=== PATIENT | female | born 1965 | race Asian ===

== ENCOUNTER 2017-06-24 11:27 | Outpatient (CLI) | payer OTHER ==
[2017-06-24 13:03] LABS: BILIRUBIN,URINE NEGATIVE (NEGATIVE); CLARITY/URINE CLEAR (CLEAR); COLOR,URINE YELLOW (YELLOW); GLUCOSE,URINE NEGATIVE (NEGATIVE); KETONES,URINE NEGATIVE (NEGATIVE); LEUKOCYTE ESTERASE ,URINE NEGATIVE (NEGATIVE); NITRITE, URINE NEGATIVE (NEGATIVE); PH,URINE 5.5 (5.0-8.0); PROTEIN URINE NEGATIVE (NEGATIVE); UROBILINOGEN,URINE 0.2 (0.2-1.0)
[2017-06-24 13:07] LABS: BLOOD, URINE TRACE (NEGATIVE)
[2017-06-24 13:12] LABS: BASOPHILS # (AUTO) 0.1 K/uL (0.0-0.2); BASOPHILS % (AUTO) 1.3 % (0.0-2.0); EOSINOPHILS # (AUTO) 0.2 K/uL (0.0-0.4); EOSINOPHILS % (AUTO) 2.9 % (0.0-4.0); HEMATOCRIT 45.1 % (36-48); LYMPHOCYTES # (AUTO) 2.7 K/uL (1.0-5.5); LYMPHOCYTES % (AUTO) 38.5 % (20.5-51.5); MEAN CORPUSCULAR HEMOGLOBIN 30 pg (27-31); MEAN CORPUSCULAR HGB CONC 33 % (32-36); MEAN CORPUSCULAR VOLUME 91 fL (79.0-98.0); MONOCYTES # (AUTO) 0.5 K/uL (0.0-1.0); MONOCYTES % (AUTO) 6.7 % (1.7-9.3); NEUTROPHILS # (AUTO) 3.6 K/uL (1.8-7.7); NEUTROPHILS % (AUTO) 50.6 % (40.0-70.0); PLATELET COUNT (AUTO) 271 K/uL (130-430); RED BLOOD CELL COUNT(AUTO) 4.94 MIL/uL (4.2-6.2); RED CELL DISTRIBUTION WIDTH 11.4 % (9.0-15.0); WHITE BLOOD COUNT (AUTO) 7.1 K/uL (4.8-10.8)
[2017-06-24 13:14] LABS: BACTERIA,URINE RARE /HPF (None Seen); WBC,URINE 0-3 /HPF (0-3)
[2017-06-24 13:20] LABS: ALBUMIN 4.3 g/dL (3.4-4.8); BILIRUBIN,DIRECT 0.1 mg/dL (0.0-0.3); CALCIUM 8.7 mg/dL (8.4-11.0); CREATININE 0.97 mg/dL (0.55-1.30); FREE T4 (FREE THYROXINE) 0.8 ng/dL (0.6-1.6); THYROID STIMULATING HORMONE 0.48 uIu/mL (0.34-4.82); TOTAL BILIRUBIN 0.5 mg/dL (0.0-1.0)
[2017-06-24 13:32] LABS: TOTAL IRON BIND. CAPACITY 264 ug/dL (250-450)
[2017-06-25 16:11] LABS: FOLATE (FOLIC ACID) 17.3 ng/mL (>3.0)
[2017-06-25 20:18] LABS: HEMOGLOBIN A1C 5.7 % (4.8-5.6)
[2017-06-25 20:27] LABS: CREATININE, URINE 86.1 mg/dL; MICROALBUMIN/CREAT RATIO, UR <3.5 MG/G CRE (0.0-30.0)
[2017-06-25 20:28] LABS: MICROALBUMIN URINE RANDOM < 3.0 ug/ml (NOT ESTABLISHED)
== END 2017-06-24 19:32 | disposition home or self-care (01) ==
LOC: SLB 11:27
PROVIDERS: ATTEND Family Medicine
DX: Z12.31 Encounter for screening mammogram for malignant neoplasm of breast (principal); G50.1 Atypical facial pain; R79.89 Other specified abnormal findings of blood chemistry
CPT/HCPCS: 36415; 70150; 70260; 80053; 80061; 81000; 82043; 82248; 82570; 82607; 82746; 83036; 83540; 83550; 84439; 84443; 84479; 85025; G0202